=== PATIENT | male | born 1990 | race Caucasian/White ===

== ENCOUNTER 2018-06-08 16:23 | Emergency (ER) | payer OTHER ==
[2018-06-08 16:59] VITALS: BP 143/98
--- NOTE | 2018-06-08 17:16 | UC ---
Hand/Wrist HPI - HPI Summary HPI Summary: Mr. Odell punched a wall in frustration yesterday with his right hand. It is continued to be painful and swollen. - History Of Current Complaint Chief Complaint: UCUpperExtremity Stated Complaint: R HAND INJURY Time Seen by Provider: 06/08/18 17:11 Hx Obtained From: Patient Onset/Duration: Sudden Onset Severity Initially: Mild Severity Currently: Mild Pain Intensity: 2 Character Of Pain: Dull, Aching Aggravating Factor(s): Movement Alleviating Factor(s): Ice Associated Signs And Symptoms: Positive: Negative - Allergies/Home Medications Allergies/Adverse Reactions: Allergies Allergy/AdvReac Type Severity Reaction Status Date / Time No Known Allergies Allergy Verified 06/08/18 16:59 Home Medications: Home Medications Ibuprofen TAB* [Motrin TAB* 600 MG] 600 mg PO Q6H PRN 06/08/18 [History Confirmed 06/08/18] PMH/Surg Hx/FS Hx/Imm Hx Previously Healthy: Yes - Surgical History Surgical History: None - Social History Alcohol Use: Daily Alcohol Amount: 4x/day Substance Use Type: None Smoking Status (MU): Never Smoked Tobacco Review of Systems All Other Systems Reviewed And Are Negative: Yes Physical Exam - Summary Physical Exam Summary: He was nontoxic in appearance with stable vital signs. Triage Information Reviewed: Yes Appearance: Well-Appearing Vital Signs: Initial Vital Signs Temp 98.1 F 06/08/18 16:54 Pulse 63 06/08/18 16:54 Resp 16 06/08/18 16:54 BP 143/98 06/08/18 16:54 Pulse Ox 100 06/08/18 16:54 Vital Signs Reviewed: Yes Musculoskeletal: Positive: Other: - Swelling and tenderness over the dorsum of the 4th and 5th MPJs. Full active and passive ROM. Procedures - Splinting Right Upper Extremity Hand-Made Type: orthoglass Splint: ulnar Pre-Proc Neuro Vasc Exam: normal Post-Proc Neuro Vasc Exam: normal Diagnostics - Radiology Right Hand Radiology Interpretation Completed By: Radiologist Summary of Radiographic Findings: Fifth Metacarpal Fracture with 30 degrees of volar angulation Hand/Wrist Course/Dx - Course Course Of Treatment: Mr. Odell punched a wall yesterday and sustained a boxer's fracture of his right hand. Was placed in a temporary splint with recommendations for close follow-up with orthopedics because of his fall or angulation which will need to be reduced. - Differential Dx/Diagnosis Provider Diagnosis: Boxer's metacarpal fracture, neck, closed Discharge - Sign-Out/Discharge Documenting (check all that apply): Patient Departure All imaging exams completed and their final reports reviewed: Yes - Discharge Plan Condition: Stable Disposition: HOME Patient Education Materials: Boxer Fracture (ED) Referrals: No Primary Care Phys,NOPCP [Primary Care Provider] - Joaquín Dela Cruz MD [Medical Doctor] - Additional Instructions: You may need to have the fracture manipulated. Please follow up in the next couple of days. - Billing Disposition and Condition Condition: STABLE Disposition: Home
== END 2018-06-08 18:15 | disposition home or self-care (01) ==
LOC: UCEAST 16:23
DX: S62.316A Displaced fracture of base of fifth metacarpal bone, right hand, initial encounter for closed fracture (principal); W22.09XA Striking against other stationary object, initial encounter; Y92.9 Unspecified place or not applicable
CPT/HCPCS: 99212; G0463

== ENCOUNTER 2018-06-15 14:10 | Day surgery (SDC) | payer OTHER ==
[~2018-06-15 14:10] MED LIST: Buffered Lidocaine 1% SYRIN* 1 ML/SYRINGE INTRADERM ONE; Famotidine IV* 10 MG/ML 2 ML (20 mg) IV ONE; Lactated Ringers 1000 ML Bag* 1,000 ML IV SCH
[2018-06-15] MEDS ORDERED: ceFAZolin 2 GM PREMIX in ORs 2 GM/50 ML BAG IVPB ONE (14:26)
[2018-06-15] MEDS ORDERED: Famotidine IV* 10 MG/ML 2 ML (20 mg) ONE (14:26)
[2018-06-15] MEDS ORDERED: Buffered Lidocaine 1% SYRIN* 1 ML/SYRINGE INTRADERM ONE (14:26)
[2018-06-15] MEDS ORDERED: Midazolam* 1 MG/ML 5 ML VIAL (5 MG) ONE (16:20)
[2018-06-15] MEDS ORDERED: Ondansetron INJ* 2 MG/ML VIAL ONE (16:20)
[2018-06-15] MEDS ORDERED: fentaNYL* 50 MCG/ML 2 ML VIAL (100 MCG VIAL) ONE ×3 (16:20→19:02)
[2018-06-15] MEDS ORDERED: Dexamethasone IV* 4 MG/ML 1 ML (4 MG) ONE (16:20)
[2018-06-15] MEDS ORDERED: Propofol* 10 MG/ML 20 ML BTL ONE (16:20)
[2018-06-15] MEDS ORDERED: Lidocaine 2% PF * 5 ML VIAL ONE (16:20)
[2018-06-15] MEDS ORDERED: Bupivacaine 0.25% SDV PF* 10 ML VIAL INJ ONE (17:39)
[2018-06-15] MEDS ORDERED: Ondansetron INJ* 2 MG/ML VIAL IV PRN (18:16)
[2018-06-15] MEDS ORDERED: fentaNYL* 50 MCG/ML 2 ML VIAL (100 MCG VIAL) IV PRN (18:16)
[2018-06-15] MEDS ORDERED: Naloxone* 0.4 MG/ML 1 ML VIAL IV PRN (18:16)
[2018-06-15 19:49] VITALS: BP 130/85
--- NOTE | 2018-06-16 11:58 | OP ---
DATE OF OPERATION: 06/15/18 - SDS DATE OF : 86 SURGEON: Joaquín Dela Cruz MD. POLICY OFFICER: JOSELINE Romero. ANESTHESIOLOGIST: Dr. Ni. ANESTHESIA: General. PRE-OP DIAGNOSIS: Right displaced 5th distal shaft metacarpal fracture. POST-OP DIAGNOSIS: Right displaced 5th distal shaft metacarpal fracture. OPERATIVE PROCEDURE: Closed reduction and percutaneous stabilization of the right 5th distal metacarpal shaft fracture. INDICATIONS: Hector has a fracture, it is very displaced. We had talked about risks and benefits. He had wanted to proceed with surgery to align and stabilize the fracture. ESTIMATED BLOOD LOSS: 2 mL. COMPLICATIONS: None. FINDINGS: See above and below. DESCRIPTION OF PROCEDURE: Hector was seen in the preoperative holding area. The correct site, side, and procedure were identified. We came back to the operating room. The arm was prepped and draped in the usual fashion and a time- out was performed. The arm was exsanguinated with the Esmarch and the tourniquet was inflated to 250 mmHg. I first made a small 3-mm incision just proximal to the ulnar aspect of the 5th metacarpal base. A smooth Steinmann pin was introduced and a unicortical window was applied at the base of the 5th metacarpal. I then took a larger K-wire and bent this in place. And then this was introduced into the cortical window. The K-wire was on the T-handled syeda, advanced up to the fracture site. I then reduced the fracture and I tapped the wire past the fracture using the mallet. The fracture was very nicely aligned. The rotation looked very good. Everything was looking good, so I put stitch around the wire proximally. Some Marcaine was infiltrated. The wire was bent and clipped. It was well-dressed and then a short-arm ulnar gutter splint was applied. He was then taken to the recovery room in stable condition. [id number]/[facility] #: [id number] [facility] HOSPITALVeronica
== END 2018-06-15 19:51 | disposition home or self-care (01) ==
LOC: OR 14:10
PROVIDERS: ATTEND Orthopaedic Surgery Hand Surgery
DX: S62.326A Displaced fracture of shaft of fifth metacarpal bone, right hand, initial encounter for closed fracture (principal); F32.9 Major depressive disorder, single episode, unspecified; M93.269 Osteochondritis dissecans, unspecified knee; W22.8XXA Striking against or struck by other objects, initial encounter; Y92.9 Unspecified place or not applicable
CPT/HCPCS: 76000; C1776; J0690; J1100; J2250; J2405; J2704; J3010; J3490